=== PATIENT | female | born 1995 | race Caucasian/White ===

== ENCOUNTER 2017-10-26 21:52 | Emergency (ER) | payer BC, SELFPAY ==
--- OUTSIDE RECORDS SUMMARY | 2017-10-26 21:55 | XMS REPORT | Clinical Summary ---
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
[2017-10-26 22:39] LABS: Absolute Monocytes 0.4 K/uL (0.1-1.3); Absolute Neutrophil 4.4 K/uL (1.8-8.0); Basophils % 0.6 % (0-1.3); Eosinophils % 3.2 % (0-4.4); Hematocrit 38.6 % (36.0-45.0); Lymphocytes % 28.6 % (15.3-44.8); MCH 29.5 pg (27.0-35.0); MCV 87.7 fL (80-100); MPV 10.4 fL (7.6-11.3); Monocytes % 6.1 % (3.3-12.3); RBC Red Blood Cell Count 4.41 M/uL (3.86-4.86)
[2017-10-26 22:41] LABS: Urine Blood NEGATIVE (NEG); Urine Glucose NEGATIVE (NEG); Urine Protein NEGATIVE (NEG); Urine Specific Gravity 1.015 (1.005-1.030)
[2017-10-26 23:02] LABS: Urine Bacteria >50 /HPF (<20); Urine Culture Reflex Order NOT NEEDED; Urine RBC NONE SEEN /HPF (NONE SEEN)
[2017-10-26] MEDS ORDERED: CEFTRIAXONE/SWI 1gm 1 GM/10 ML SYR ONE (23:16)
[2017-10-26] MEDS ORDERED: NA CHLORIDE 0.9% 1,000 ML ONE (23:16)
[2017-10-26 23:25] LABS: ALT/SGPT 18 U/L (12-78); AST/SGOT 13 U/L (15-37); Alkaline Phosphatase 102 U/L (45-117); Amylase Level 32 U/L (25-115); BUN Blood Urea Nitrogen 12 mg/dL (7-18); Bicarbonate 26 mmol/L (21-32); Bilirubin Direct < 0.1 mg/dL (0-0.2); Bilirubin Total 0.2 mg/dL (0.2-1.0); Glucose Level 102 mg/dL (74-106); Potassium 3.8 mmol/L (3.5-5.1); Protein, Total 7.2 g/dL (6.4-8.2); Sodium Level 141 mmol/L (136-145)
[2017-10-26 23:45] LABS: HCG, Quantitative < 1 mIU/mL (1-3)
--- NOTE | 2017-10-27 00:21 | ER ---
Nurse's Notes [facility] Name: Destiny Berry Age: 22 yrs Sex: Female : 1995 Arrival Date: 10/26/2017 Time: 21:56 Bed 27 Private MD: Diagnosis: Lower abdominal pain, unspecified;Urinary tract infection, site not specified Presentation: 10/26 21:58 Presenting complaint: Patient states: Sharp LLQ pain since this morning, Denies N/V/D, la1 last BM this morning and normal. Transition of care: patient was not received from another setting of care. Onset of symptoms was October 26, 2017. Risk Assessment: Do you want to hurt yourself or someone else? Patient reports no desire to harm self or others. Initial Sepsis Screen: Does the patient meet any 2 criteria? No. Patient's initial sepsis screen is negative. Does the patient have a suspected source of infection? No. Patient's initial sepsis screen is negative. Care prior to arrival: None. 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 - Social history:: Smoking status: Patient uses tobacco products, denies chronic smoking, but will smoke occasionally. - Ebola Screening: : No symptoms or risks identified at this time. Screenin:43 Abuse screen: Denies threats or abuse. Denies injuries from another. Nutritional kr2 screening: No deficits noted. Tuberculosis screening: No symptoms or risk factors identified. Fall Risk None identified. Assessment: 22:41 General: Appears in no apparent distress. comfortable, well groomed, well developed, kr2 well nourished, Behavior is calm, cooperative, appropriate for age. Pain: Complains of pain in left lower quadrant Pain does not radiate. Pain currently is 5 out of 10 on a pain scale. Quality of pain is described as sharp, Is continuous, Alleviated by nothing. Neuro: Level of Consciousness is awake, alert, obeys commands, Oriented to person, place, time, situation, Appropriate for age. Cardiovascular: Capillary refill < 3 seconds in bilateral fingers Patient's skin is warm and dry. Respiratory: Airway is patent Respiratory effort is even, unlabored, Respiratory pattern is regular, symmetrical. GI: Bowel sounds present X 4 quads. Abd is soft X 4 quads Abdomen is tender to palpation in left lower quadrant. GI: Patient currently denies diarrhea, nausea, vomiting. : Denies burning with urination. EENT: Oral mucosa is moist. Derm: Skin is intact, is healthy with good turgor, Skin is pink, warm \T\ dry. Musculoskeletal: Circulation, motion, and sensation intact. 10/27 00:17 Reassessment: Patient appears in no apparent distress at this time. Patient and/or kr2 family updated on plan of care and expected duration. Pain level reassessed. Patient is alert, oriented x 3, equal unlabored respirations, skin warm/dry/pink. Patient states feeling better. Vital Signs: 10/26 21:59 BP 122 / 77; Pulse 114; Resp 19; Temp 98.3; Pulse Ox 100% on R/A; Weight 59.87 kg; la1 Height 5 ft. 0 in. (152.40 cm); 22:44 BP 111 / 65; Pulse 93; Resp 17; Pulse Ox 98% on R/A; kr2 10/27 00:18 BP 115 / 75; Pulse 94; Resp 18; Pulse Ox 99% on R/A; kr2 10/26 21:59 Body Mass Index 25.78 (59.87 kg, 152.40 cm) la1 ED Course: 10/26 21:56 Patient arrived in ED. es 21:56 [facility]C [facility] snw 21:56 Jason Chirinos MD is Attending Physician. snw 21:58 Triage completed. la1 21:59 Arm band placed on left wrist. la1 22:34 Inserted saline lock: 20 gauge in right antecubital area, using aseptic technique. rv 22:43 Patient has correct armband on for positive identification. Bed in low position. Call kr2 light in reach. Side rails up X 1. Pulse ox on. NIBP on. Door closed. Verbal reassurance given. Head of bed elevated. 10/27 00:29 No provider procedures requiring assistance completed. IV discontinued, intact, kr2 bleeding controlled, No redness/swelling at site. Pressure dressing applied. Administered Medications: 10/26 23:15 Drug: NS 0.9% 1000 ml Route: IV; Rate: 1 bolus; Site: right antecubital; kr2 10/27 00:17 Follow up: Response: No adverse reaction; IV Status: Completed infusion kr2 10/26 23:15 Drug: Rocephin 1 grams Route: IV; Rate: calculated rate; Site: right antecubital; kr2 23:45 Follow up: Response: No adverse reaction; IV Status: Completed infusion kr2 Outcome: 10/27 00:21 Discharge ordered by . josey 00:29 Discharged to home ambulatory. kr2 00:29 Condition: good 00:29 Discharge instructions given to patient, Instructed on discharge instructions, follow up and referral plans. medication usage, Demonstrated understanding of instructions, follow-up care, medications, Prescriptions given X 2. 00:30 Patient left the ED. kr2 Signatures: Amira Aguilar, INDUSTRIAL TRUCK OPERATOR-C INDUSTRIAL TRUCK OPERATOR-Csnw Layla Perez Lee RN RN la1 Madelaine Marmolejo RN RN kr2 Jorge Bradley RN RN rv
--- NOTE | 2017-10-27 00:21 | EDPHYS ---
Physician Documentation [facility] Name: Destiny Berry Age: 22 yrs Sex: Female : 1995 Arrival Date: 10/26/2017 Time: 21:56 Bed 27 Private MD: ED Physician Jason Chirinos HPI: 10/26 22:37 This 22 yrs old Female presents to ER via Ambulatory with complaints of snw Abdominal Pain. 22:37 The patient presents with abdominal pain in the lower abdomen, in the left lower snw quadrant. Onset: The symptoms/episode began/occurred suddenly, this morning. The symptoms do not radiate. Associated signs and symptoms: none. The symptoms are described as crampy, stabbing. Severity of pain: At its worst the pain was moderate. The patient has not experienced similar symptoms in the past. It is unknown whether or not the patient has recently seen a physician. 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 - Social history:: Smoking status: Patient uses tobacco products, denies chronic smoking, but will smoke occasionally. - Ebola Screening: : No symptoms or risks identified at this time. ROS: 22:36 Constitutional: Negative for fever, chills, and weight loss, Eyes: Negative for injury, snw pain, redness, and discharge, ENT: Negative for injury, pain, and discharge, Neck: Negative for injury, pain, and swelling, Cardiovascular: Negative for chest pain, palpitations, and edema, Respiratory: Negative for shortness of breath, cough, wheezing, and pleuritic chest pain, Back: Negative for injury and pain, : Negative for injury, bleeding, discharge, and swelling, MS/Extremity: Negative for injury and deformity, Skin: Negative for injury, rash, and discoloration, Neuro: Negative for headache, weakness, numbness, tingling, and seizure. 22:36 Abdomen/GI: Positive for abdominal pain, abdominal cramps. Exam: 22:35 Constitutional: This is a well developed, well nourished patient who is awake, alert, snw and in no acute distress. Head/Face: Normocephalic, atraumatic. Eyes: Pupils equal round and reactive to light, extra-ocular motions intact. Lids and lashes normal. Conjunctiva and sclera are non-icteric and not injected. Cornea within normal limits. Periorbital areas with no swelling, redness, or edema. ENT: Nares patent. No nasal discharge, no septal abnormalities noted. Tympanic membranes are normal and external auditory canals are clear. Oropharynx with no redness, swelling, or masses, exudates, or evidence of obstruction, uvula midline. Mucous membranes moist. Neck: Trachea midline, no thyromegaly or masses palpated, and no cervical lymphadenopathy. Supple, full range of motion without nuchal rigidity, or vertebral point tenderness. No Meningismus. Chest/axilla: Normal chest wall appearance and motion. Nontender with no deformity. No lesions are appreciated. Cardiovascular: Tachycardic rate and rhythm with a normal S1 and S2. No gallops, murmurs, or rubs. Normal PMI, no JVD. No pulse deficits. Respiratory: Lungs have equal breath sounds bilaterally, clear to auscultation and percussion. No rales, rhonchi or wheezes noted. No increased work of breathing, no retractions or nasal flaring. Back: No spinal tenderness. No costovertebral tenderness. Full range of motion. Skin: Warm, dry with normal turgor. Normal color with no rashes, no lesions, and no evidence of cellulitis. MS/ Extremity: Pulses equal, no cyanosis. Neurovascular intact. Full, normal range of motion. Neuro: Awake and alert, GCS 15, oriented to person, place, time, and situation. Cranial nerves II-XII grossly intact. Motor strength 5/5 in all extremities. Sensory grossly intact. Cerebellar exam normal. Normal gait. 22:35 Abdomen/GI: Inspection: abdomen appears normal, Bowel sounds: normal, in all quadrants, in the suprapubic area and left lower quadrant, Palpation: moderate abdominal tenderness, in the suprapubic area and left lower quadrant. Vital Signs: 21:59 BP 122 / 77; Pulse 114; Resp 19; Temp 98.3; Pulse Ox 100% on R/A; Weight 59.87 kg; la1 Height 5 ft. 0 in. (152.40 cm); 22:44 BP 111 / 65; Pulse 93; Resp 17; Pulse Ox 98% on R/A; kr2 10/27 00:18 BP 115 / 75; Pulse 94; Resp 18; Pulse Ox 99% on R/A; kr2 10/26 21:59 Body Mass Index 25.78 (59.87 kg, 152.40 cm) la1 MDM: 10/26 22:12 Patient medically screened. snw 10/27 00:22 Data reviewed: vital signs, nurses notes. Data interpreted: Pulse oximetry: on room air snw is 99 %. Interpretation: normal. Counseling: I had a detailed discussion with the patient and/or guardian regarding: the historical points, exam findings, and any diagnostic results supporting the discharge/admit diagnosis, lab results, the need for outpatient follow up, to return to the emergency department if symptoms worsen or persist or if there are any questions or concerns that arise at home. Special discussion: Based on the patient's Hx, exam, and Dx evaluation, there is no indication for emergent surgery or inpatient Tx. It is understood by the patient/guardian that if the Sx's persist or worsen they need to return immediately for re-evaluation. Based on the history and exam findings, there is no indication for further emergent testing or inpatient evaluation. I discussed with the patient/guardian the need to see the primary care provider for further evaluation of the symptoms. 10/26 22:13 Order name: Amylase, Serum; Complete Time: 23:46 snw 10/26 22:13 Order name: Basic Metabolic Panel; Complete Time: 23:46 snw 10/26 22:13 Order name: CBC with Diff; Complete Time: 22:45 snw 10/26 22:13 Order name: Creatinine for Radiology; Complete Time: 23:01 snw 10/26 22:13 Order name: Hepatic Function; Complete Time: 23:46 snw 10/26 22:13 Order name: Urine Microscopic Only; Complete Time: 23:08 snw 10/26 22:13 Order name: IV Saline Lock; Complete Time: 22:34 snw 10/26 22:13 Order name: Labs collected and sent; Complete Time: 22:34 snw 10/26 22:13 Order name: Urine Dipstick-Ancillary (obtain specimen); Complete Time: 22:34 snw 08/06 22:32 Order name: HCG, Quantitative; Complete Time: 23:46 EDMS 10/26 22:35 Order name: Urine Dipstick--Ancillary (enter results); Complete Time: 22:45 mw2 Administered Medications: 10/26 23:15 Drug: NS 0.9% 1000 ml Route: IV; Rate: 1 bolus; Site: right antecubital; kr2 10/27 00:17 Follow up: Response: No adverse reaction; IV Status: Completed infusion kr2 10/26 23:15 Drug: Rocephin 1 grams Route: IV; Rate: calculated rate; Site: right antecubital; kr2 23:45 Follow up: Response: No adverse reaction; IV Status: Completed infusion kr2 Disposition: 10/27 14:01 Co-signature as Attending Physician, Jason Chirinos MD I agree with the assessment and jadiel plan of care. Disposition: 10/27/17 00:21 Discharged to Home. Impression: Lower abdominal pain, unspecified, Urinary tract infection, site not specified. - Condition is Stable. - Discharge Instructions: Abdominal Pain, Adult, Urinary Tract Infection, Adult, Rehydration, Adult. - Prescriptions for Bentyl 20 mg Oral Tablet - take 1 tablet by ORAL route every 6 hours As needed; 20 tablet. cefpodoxime 200 mg Oral Tablet - take 1 tablet by ORAL route every 12 hours with food; 20 tablet. - Medication Reconciliation Form, Thank You Letter, Antibiotic Education, Prescription Opioid Use form. - Follow up: Emergency Department; When: As needed; Reason: Worsening of condition. Follow up: Private Physician; When: 2 - 3 days; Reason: Recheck today's complaints, Continuance of care, Re-evaluation by your physician. Signatures: Dispatcher [employer] [facility] Jason Chirinos MD MD cha Therrien, Shelly, MANAGER ADULT-C MANAGER ADULT-Csnw Endy Dudley RN RN [email or web address] Madelaine Marmolejo RN RN kr2 Corrections: (The following items were deleted from the chart) 10/26 22:31 22:14 TEST, SERUM+SC.LAB.BRZ ordered. [facility] 22:38 22:35 Constitutional: This is a well developed, well nourished patient who is awake, snw alert, and in no acute distress. Head/Face: Normocephalic, atraumatic. Eyes: Pupils equal round and reactive to light, extra-ocular motions intact. Lids and lashes normal. Conjunctiva and sclera are non-icteric and not injected. Cornea within normal limits. Periorbital areas with no swelling, redness, or edema. ENT: Nares patent. No nasal discharge, no septal abnormalities noted. Tympanic membranes are normal and external auditory canals are clear. Oropharynx with no redness, swelling, or masses, exudates, or evidence of obstruction, uvula midline. Mucous membranes moist. Neck: Trachea midline, no thyromegaly or masses palpated, and no cervical lymphadenopathy. Supple, full range of motion without nuchal rigidity, or vertebral point tenderness. No Meningismus. Chest/axilla: Normal chest wall appearance and motion. Nontender with no deformity. No lesions are appreciated. Cardiovascular: Regular rate and rhythm with a normal S1 and S2. No gallops, murmurs, or rubs. Normal PMI, no JVD. No pulse deficits. Respiratory: Lungs have equal breath sounds bilaterally, clear to auscultation and percussion. No rales, rhonchi or wheezes noted. No increased work of breathing, no retractions or nasal flaring. Back: No spinal tenderness. No costovertebral tenderness. Full range of motion. Skin: Warm, dry with normal turgor. Normal color with no rashes, no lesions, and no evidence of cellulitis. MS/ Extremity: Pulses equal, no cyanosis. Neurovascular intact. Full, normal range of motion. Neuro: Awake and alert, GCS 15, oriented to person, place, time, and situation. Cranial nerves II-XII grossly intact. Motor strength 5/5 in all extremities. Sensory grossly intact. Cerebellar exam normal. Normal gait. snw 10/27 00:30 00:21 10/27/2017 00:21 Discharged to Home. Impression: Lower abdominal pain, kr2 unspecified; Urinary tract infection, site not specified. Condition is Stable. Forms are Medication Reconciliation Form, Thank You Letter, Antibiotic Education, Prescription Opioid Use. Follow up: Emergency Department; When: As needed; Reason: Worsening of condition. Follow up: Private Physician; When: 2 - 3 days; Reason: Recheck today's complaints, Continuance of care, Re-evaluation by your physician. snw
== END 2017-10-27 00:30 | disposition home or self-care (01) ==
LOC: ER 21:52
DX: N39.0 Urinary tract infection, site not specified (principal); Z72.0 Tobacco use
CPT/HCPCS: 36415; 80048; 80076; 81003; 81015; 82150; 84702; 85025; 96361; 96365; 99284; J0696; J7030